=== PATIENT | female | born 1975 | race Asian ===

== ENCOUNTER 2021-08-09 19:47 | Emergency (ER) | payer BC ==
[~2021-08-09] VITALS: Ht 147.3 cm; Wt 48.1 kg
[~2021-08-09 19:47] MED LIST: ALBU17AE26 IH
[2021-08-09 19:51] VITALS: BP_SYST 125
[2021-08-09 20:41] LABS: EOSINOPHILS # (AUTO) 0.1 K/uL (0.0-0.4); MONOCYTES # (AUTO) 0.5 K/uL (0.0-1.0); RED CELL DISTRIBUTION WIDTH 13.4 % (9.0-15.0)
[2021-08-09 20:52] LABS: CALCIUM 9.7 mg/dL (8.4-11.0); CREATININE 0.81 mg/dL (0.55-1.30); POTASSIUM 3.8 mmol/L (3.5-5.1)
[2021-08-09 20:55] LABS: BASOPHILS # (AUTO) 0.1 K/uL (0.0-0.2); BASOPHILS % (AUTO) 1.3 % (0.0-2.0); EOSINOPHILS % (AUTO) 2.2 % (0.0-4.0); HEMATOCRIT 41.1 % (36-48); HEMOGLOBIN 13.6 g/dL (12.0-16.0); LYMPHOCYTES # (AUTO) 1.7 K/uL (1.0-5.5); LYMPHOCYTES % (AUTO) 33.5 % (20.5-51.5); MEAN CORPUSCULAR HEMOGLOBIN 28 pg (27-31); MEAN CORPUSCULAR HGB CONC 33 % (32-36); MEAN CORPUSCULAR VOLUME 85 fL (79.0-98.0); MONOCYTES % (AUTO) 10.7 % (1.7-9.3); NEUTROPHILS # (AUTO) 2.6 K/uL (1.8-7.7); NEUTROPHILS % (AUTO) 52.3 % (40.0-70.0); PLATELET COUNT (AUTO) 280 K/uL (130-430); RED BLOOD CELL COUNT(AUTO) 4.83 MIL/uL (4.2-6.2)
--- NOTE | 2021-08-09 20:58 | NUR ---
Patient to ER bed 02 to gown for evaluation. Side rails up.
--- NOTE | 2021-08-09 21:01 | NUR ---
Pt brought self in from home due to on going episodes of heart palpitations which have been worsening gradually s/p Covid Vaccine in June. Pt reports today to ED due to new onset of L arm pain that radiates to neck which started yesterday. Pt states symptoms are worse while lying down. Medical HX of Asthma reported. Appears in no acute distress. Breathing adequately on RA.
[2021-08-09 21:05] LABS: ALBUMIN 3.9 g/dL (3.4-4.8); THYROID STIMULATING HORMONE 1.05 uIu/mL (0.36-3.74); TOTAL BILIRUBIN 0.3 mg/dL (0.0-1.0)
--- NOTE | 2021-08-09 21:07 | NUR ---
ER at bedside examining patient.
--- NOTE | 2021-08-09 22:33 | NUR ---
Patient given written and verbal discharge instructions and verbalizes understanding. ER MD Carnes discussed with patient the results and treatment provided. Patient in stable condition. ID arm band removed. Patient educated to follow up with PMD. Opportunity for questions provided and answered. Medication side effect fact sheet provided.
[2021-08-09 22:40] VITALS: BP_SYST 125
== END 2021-08-09 22:40 | disposition home or self-care (01) ==
LOC: SED 19:47 → MERGE 19:47 → SED 22:40
DX: R00.2 Palpitations (principal)
CPT/HCPCS: 36415; 80053; 81025; 84443; 84484; 85025; 93005; 99284

== ENCOUNTER 2023-09-16 13:31 | Emergency (ER) | payer BC, OTHER ==
[~2023-09-16] VITALS: Ht 147.3 cm; Wt 48.5 kg
[2023-09-16 13:49] VITALS: BP_SYST 121; PULSE 71; RESP 15; TEMP 97.7; O2SAT 100
[2023-09-16 14:55] LABS: BILIRUBIN,URINE NEGATIVE (NEGATIVE); BLOOD, URINE NEGATIVE (NEGATIVE); CLARITY/URINE CLEAR (CLEAR); COLOR,URINE YELLOW (YELLOW); GLUCOSE,URINE NEGATIVE (NEGATIVE); KETONES,URINE 1+ (NEGATIVE); LEUKOCYTE ESTERASE ,URINE NEGATIVE (NEGATIVE); NITRITE, URINE NEGATIVE (NEGATIVE); PROTEIN URINE NEGATIVE (NEGATIVE); UROBILINOGEN,URINE 0.2 (0.2-1.0)
[2023-09-16 15:01] LABS: BASOPHILS % (AUTO) 0.6 % (0.0-2.0); EOSINOPHILS # (AUTO) 0.1 K/uL (0.0-0.4); EOSINOPHILS % (AUTO) 1.6 % (0.0-4.0); HEMOGLOBIN 12.5 g/dL (12.0-16.0); LYMPHOCYTES % (AUTO) 34.3 % (20.5-51.5); MEAN CORPUSCULAR HEMOGLOBIN 29 pg (27-31); MEAN CORPUSCULAR HGB CONC 34 % (32-36); MEAN CORPUSCULAR VOLUME 86 fL (79.0-98.0); MONOCYTES # (AUTO) 0.5 K/uL (0.0-1.0); MONOCYTES % (AUTO) 8.1 % (1.7-9.3); NEUTROPHILS # (AUTO) 3.2 K/uL (1.8-7.7); NEUTROPHILS % (AUTO) 55.4 % (40.0-70.0); PLATELET COUNT (AUTO) 225 K/uL (130-430); RED BLOOD CELL COUNT(AUTO) 4.29 MIL/uL (4.2-6.2); RED CELL DISTRIBUTION WIDTH 13.1 % (9.0-15.0); WHITE BLOOD COUNT (AUTO) 5.7 K/uL (4.8-10.8)
[2023-09-16 15:09] LABS: PROTHROMBIN TIME 10.2 SECS (9.5-12.5)
[2023-09-16 15:20] LABS: ALANINE AMINOTRANSFERASE 24 U/L (12-78); ALBUMIN 3.3 g/dL (3.4-4.8); ANION GAP 5 (5-15); ASPARTATE AMINOTRANSFERASE 17 U/L (10-37); BILIRUBIN,DIRECT 0.1 mg/dL (0.0-0.3); CALCIUM 8.2 mg/dL (8.4-11.0); CARBON DIOXIDE 29 mmol/L (23-29); CHLORIDE 109 mmol/L (98-107); CREATINE KINASE, TOTAL 57 U/L (26-192); CREATININE 1.14 mg/dL (0.55-1.30); GFR AFRICAN AMERICAN 65 mL/min (>90); GFR NON AFRICAN-AMERICAN 54 mL/min (>90); GLUCOSE 111 mg/dL (74-106); POTASSIUM 4.2 mmol/L (3.5-5.1); SODIUM SERUM 143 mmol/L (136-145); TOTAL BILIRUBIN 0.4 mg/dL (0.0-1.0); TOTAL PROTEIN, SERUM 6.8 g/dL (6.4-8.3); UREA NITROGEN, BLOOD 9 mg/dL (8-21)
[2023-09-16 15:59] VITALS: BP_SYST 121; PULSE 71; RESP 15; TEMP 97.7; O2SAT 100
== END 2023-09-16 15:58 | disposition home or self-care (01) ==
LOC: SED 13:31
DX: R20.2 Paresthesia of skin (principal); R53.1 Weakness; J45.909 Unspecified asthma, uncomplicated; E78.5 Hyperlipidemia, unspecified; Z91.040 Latex allergy status; Z91.013 Allergy to seafood; Z79.899 Other long term (current) drug therapy
CPT/HCPCS: 36415; 70450-TC; 71045; 80048; 80076; 81001; 81003; 81025; 82550; 83605; 84484; 85025; 85610; 85730; 93005; 99285